=== PATIENT | female | born 1960 | race Caucasian/White ===

== ENCOUNTER 2017-12-15 07:09 | Day surgery (SDC) | payer MEDICAID ==
[2017-12-15] MEDS ORDERED: Dextrose 5%-Lactated Ringers 1,000 ML IV SCH (07:45)
[2017-12-15] MEDS ORDERED: Glycopyrrolate 0.2 MG/ML 2 ML SDV IVPUSH ONE (07:45)
[2017-12-15] MEDS ORDERED: Propofol 200 MG/20 ML SDV ONE (09:15)
[2017-12-15] MEDS ORDERED: Midazolam 1 MG/ML 2 ML SDV ONE (09:15)
[2017-12-15] MEDS ORDERED: fentaNYL 100 MCG/2 ML SDV ONE (09:15)
[2017-12-15 11:17] VITALS: BP 115/80
--- NOTE | 2017-12-18 10:38 | OR ---
DATE OF PROCEDURE: 12/15/2017 PREOPERATIVE DIAGNOSIS: History of Barajas esophagus. POSTOPERATIVE DIAGNOSIS: History of Barajas esophagus. OPERATIVE PROCEDURE: Upper GI endoscopy with: 1. Biopsies of esophagogastric junction for histologic evaluation. 2. Biopsies of antrum for CLOtest. ANESTHESIA: IV sedation. INDICATIONS FOR PROCEDURE: A 57-year-old presenting with a plan for upper endoscopy for surveillance of her Barajas esophagus. Presently, she is on omeprazole 20 mg a day with a good symptom control. Plan is to proceed with an upper GI endoscopy with biopsies as indicated. Potential risks including bleeding and perforation were reviewed and the patient wishes to proceed. DETAILS OF PROCEDURE: The patient was taken to the operating room and placed in a left lateral decubitus position. IV sedation was administered after which the upper GI endoscope was passed orally through the length of the esophagus and into the stomach with retroflexion view of the fundus, thereafter through the pyloric channel and into the junction of the third and fourth portions of the duodenum. Findings included normal hypopharynx, larynx, upper esophageal sphincter, and esophageal body. At the EG junction, a small hiatal hernia was present. There was some upward extension of the gastroesophageal junction mucosal line, but without any gross inflammation per se at the EG junction. There was no stricturing or plaquing or other signs of neoplastic change. The remainder of the gastric and duodenal exams were unremarkable. At this point, biopsies were taken from the antrum and sent for CLOtest to assess patient's H. pylori status. Multiple biopsies were then obtained from the esophagogastric junction and sent for histologic evaluation. Minimal bleeding from the biopsy sites was seen, and the patient was taken to the recovery room in satisfactory condition. The plan will be to continue the patient on present medical management and followup endoscopy should be in 2 years as there is no trend toward dysplasia seen on today's biopsies. Martell Nesbitt MD /[id number]
== END 2017-12-15 11:05 | disposition home or self-care (01) ==
LOC: JP.SDS 07:09
PROVIDERS: ATTEND Surgery
DX: K22.70 Barrett's esophagus without dysplasia (principal); K44.9 Diaphragmatic hernia without obstruction or gangrene; K20.9 Esophagitis, unspecified; Z79.899 Other long term (current) drug therapy
CPT/HCPCS: 43239; 87081; J2250; J2704; J3010; J7042; 88305; J3490

== ENCOUNTER 2021-05-10 06:26 | Day surgery (SDC) | payer MEDICAID, OTHER ==
[2021-05-10] MEDS ORDERED: Propofol 200 MG/20 ML SDV ONE ×2 (07:15→08:09)
[2021-05-10] MEDS ORDERED: fentaNYL 100 MCG/2 ML SDV ONE (07:15)
[2021-05-10] MEDS ORDERED: Midazolam 1 MG/ML 2 ML SDV ONE (07:15)
[2021-05-10] MEDS ORDERED: Meropenem 500 MG in Sodium Chloride 0.9% 50 ML IV ONE (07:30)
[2021-05-10] MEDS ORDERED: Glycopyrrolate 0.2 MG/ML 2 ML SDV IVPUSH ONE (07:30)
[2021-05-10] MEDS ORDERED: Dextrose 5%-Lactated Ringers 1,000 ML IV SCH (07:30)
[2021-05-10 09:09] VITALS: BP 122/76; PULSE 72
--- NOTE | 2021-05-12 15:04 | OR ---
DATE OF PROCEDURE: 05/10/2021 SURGEON: Martell Nesbitt MD PREOPERATIVE DIAGNOSES: 1. History of Barajas esophagus. 2. Indications for screening colonoscopy. POSTOPERATIVE DIAGNOSES: 1. History of Barajas esophagus with upper endoscopy showing: a. Well controlled inflammation at esophagogastric junction with upper extension of columnar mucosa consistent with history of Barajas esophagus. b. Multiple stable-appearing fundic gland polyps. c. Mild antral gastritis. 2. Flexible colonoscopy showing uncomplicated diverticulosis. OPERATIVE PROCEDURES: 1. Esophagogastroduodenoscopy with: a. Biopsy of esophagogastric junction for histologic evaluation. b. Biopsies of antrum for CLOtest. 2. Flexible colonoscopy. ANESTHESIA: IV sedation. INDICATION FOR PROCEDURE: The patient presents for followup upper endoscopy for surveillance of Barajas esophagus. Presently, she is on omeprazole 40 mg a day, does have good control of symptoms with that. Most recent endoscopy done around two to three years ago in [facility] showed some fundic gland polyps consistent with long-term PPI use, in addition to the findings related to the gastroesophageal reflux disease. Plan is to proceed with followup upper endoscopy with biopsies as indicated. The patient also meets criteria for screening colonoscopy at this point. She has no personal or family history of colonic malignancy and the plan will be to proceed with colonoscopy with biopsies and polypectomy as indicated. Potential risks including bleeding and perforation were discussed, and the patient wishes to proceed. DETAILS OF PROCEDURE: The patient was taken to the operating room and placed in a left lateral decubitus position. IV sedation was administered, after which the upper GI endoscope was passed orally through the length of the esophagus into the stomach with retroflexion view of the fundus and thereafter through the pyloric channel and into the proximal duodenum. Findings included normal hypopharynx, larynx, upper esophageal sphincter, and esophageal body. At the EG junction, a small hiatal hernia present measuring in the range of 1 cm to 2 cm. There was some focal upward extension of the gastroesophageal junction mucosal line, upward extension of columnar type mucosa, but this was associated with minimal, if any gross inflammation. There was no plaquing, stricturing, or other signs of malignant change. Within the fundus, there were multiple fundic gland polyps. These were all quite small and unremarkable in appearance, and they visualized from the [facility] endoscopy done two to three years ago and were not significantly changed. Within the antrum, there was some patchy area of redness without erosions or ulcers. The pyloric channel and proximal duodenum were unremarkable. At this point, biopsies obtained from the antrum and sent for CLOtest for H pylori. Multiple biopsies were then obtained from the esophagogastric junction, sent for histologic evaluation. Minimal bleeding from the biopsy sites was seen and the procedure then concluded. The initial digital rectal exam was performed and was unremarkable. Colonoscope was then passed into the rectum with retroflexion revealing uncomplicated hemorrhoidal columns. Scope was eventually passed to level of the ileocecal valve. Patient had slightly redundant colon, but we were eventually able to get the entire length of the colon and the ileocecal valve was visualized. The prep was quite good with only small amount of liquid stool was present. The patient had some uncomplicated left colonic diverticulosis. Otherwise, there were no polyps or signs of neoplasia and no areas of colitis. The scope was then withdrawn, the above findings reconfirmed, and the procedure then concluded. The plan will be to continue the present medical management for reflux disease and a followup colonoscopy should be undertaken in 10 years. Martell Nesbitt MD /[id number]
== END 2021-05-10 09:11 | disposition home or self-care (01) ==
LOC: JP.SDS 06:26
PROVIDERS: ATTEND Surgery
DX: Z12.11 Encounter for screening for malignant neoplasm of colon (principal); K57.30 Diverticulosis of large intestine without perforation or abscess without bleeding; K20.90 Esophagitis, unspecified without bleeding; K31.7 Polyp of stomach and duodenum; K64.9 Unspecified hemorrhoids; K29.60 Other gastritis without bleeding; K44.9 Diaphragmatic hernia without obstruction or gangrene; Z87.19 Personal history of other diseases of the digestive system
CPT/HCPCS: 43239; 45378; 87081; J2185; J2250; J2704; J3010; J3490; J7121; 88305